=== PATIENT | male | born 1965 | race Hispanic/Latino ===

== ENCOUNTER 2020-02-05 05:54 | Day surgery (SDC) | payer MEDICARE ==
[~2020-02-05] VITALS: Ht 177.8 cm; Wt 117.9 kg
[~2020-02-05 05:54] MED LIST: ALBU18HF7 IH; ALBU2.5V2 IH; ANAS1TAB49 PO; ARIP5TAB56 PO; ASPI-556 PO; ATOR40TA71 PO; BACL10TA PO; BUDE10.2 IH; BUPR-74 PO; BUSP10TA3 PO; CLON1PAT TD; DHCO1CAP16 PO; DOCU100C33 PO; FAMO20TA8 PO; FENO160T16 PO; FEXO-59 PO; FOLI0.8T43 PO; HYDR28CR51 TP; LACT10SO PO; LEVO175T9 PO; LINA145C PO; LORA-705 PO; LORA0.5T83 PO; LUBI24CA2 PO; MECL-160 PO; NEBI10TA PO; OLME1TAB54 PO; OMEP40CA13 PO; PRAS50CA3 PO; PREG75 PO; QUET200T29 PO; SIME80TA11 PO; SUCR1ORA15 PO; TAMS-1 PO; TEST200V21 IM; TYL2 PO; VARE1TAB22 PO; VITAD50000 PO; ZOLP10TA2 PO
[2020-02-05] MEDS ORDERED: PROPOFOL 10 MG/ML 20ML VIAL IV ONE ×2 (06:30→07:26)
[2020-02-05] MEDS ORDERED: SODIUM CHLORIDE 0.9% 1000ML 1,000 ML IV ONE (06:52)
[2020-02-05 07:28] VITALS: BP 120/61
[2020-02-05] MEDS ORDERED: DHCO1CAP16 PO (07:49)
[2020-02-05] MEDS ORDERED: PRAS1TAB3 PO (07:49)
[2020-02-05 08:14] VITALS: BP 103/60
[2020-02-05 08:19] VITALS: BP 105/64
[2020-02-05 08:24] VITALS: BP 110/69
== END 2020-02-05 08:45 | disposition home or self-care (01) ==
LOC: DAH 05:54
PROVIDERS: ATTEND Internal Medicine Gastroenterology
DX: K59.01 Slow transit constipation (principal); R14.0 Abdominal distension (gaseous); K29.50 Unspecified chronic gastritis without bleeding; K63.5 Polyp of colon; K57.30 Diverticulosis of large intestine without perforation or abscess without bleeding; K22.8 Other specified diseases of esophagus; K21.9 Gastro-esophageal reflux disease without esophagitis; E11.9 Type 2 diabetes mellitus without complications; F41.9 Anxiety disorder, unspecified; F32.9 Major depressive disorder, single episode, unspecified; I10 Essential (primary) hypertension; M19.90 Unspecified osteoarthritis, unspecified site; E78.5 Hyperlipidemia, unspecified; F17.210 Nicotine dependence, cigarettes, uncomplicated; G47.00 Insomnia, unspecified; E66.9 Obesity, unspecified; J44.9 Chronic obstructive pulmonary disease, unspecified; Z68.37 Body mass index [BMI] 37.0-37.9, adult; Z98.890 Other specified postprocedural states; Z83.3 Family history of diabetes mellitus; Z85.6 Personal history of leukemia; Z82.49 Family history of ischemic heart disease and other diseases of the circulatory system
CPT/HCPCS: 43239; 45380; 82948 ×2; 88305; 88342; 93005; A4215; A4221; A4222; A4223; A4606; A4620; A4663; J2704 ×2; J7030